=== PATIENT | male | born 1975 | race Caucasian/White ===

== ENCOUNTER 2017-11-23 20:16 | Emergency (ER) | payer OTHER ==
[2017-11-23 20:26] VITALS: RESP 17
--- NOTE | 2017-11-23 20:34 | EDPHY ---
H & P Time Seen by Provider: 11/23/17 20:30 HPI/ROS: Chief complaint: Right thumb cut History of present illness: This is a 42-year-old male who presents to the emergency department for a cut to his right thumb. He cut it on a meat cutting device. There has been pain. There has been bleeding. However no report of paresthesias or abnormal coolness in the thumb. He is still moving it well. His tetanus is up-to-date. Smoking Status: Never smoked Physical Exam: General: Alert, nontoxic Skin: Very superficial amputation of skin involving the distal nail and distal aspect of the thumb. No repairable lesions. Musculoskeletal: Moving the right thumb in the PIP and MCP joint in all smith with full strength. Vascular: Capillary refill brisk in the thumb. Neurologic: Sensation intact throughout the thumb. Constitutional: Initial Vital Signs Temperature (C) 36.8 C 11/23/17 20:19 Heart Rate 78 11/23/17 20:19 Respiratory Rate 17 11/23/17 20:19 Blood Pressure 136/88 H 11/23/17 20:19 O2 Sat (%) 96 11/23/17 20:19 O2 Delivery Mode Room Air Allergies/Adverse Reactions: No Known Allergies Allergy (Unverified 11/23/17 20:26) Home Medications: Medication Instructions Recorded Triumeq Tablet 11/23/17 MDM/Departure - [facility] ED Course/Re-evaluation: Patient seen under the supervision of my secondary supervising physician Dr. Roque Landeros. Patient presents for a cut to his right thumb. This is very superficial. Non repairable. It is cleaned and dressed. His tetanus is already up-to-date. He is asked to follow up with worker's compensation for recheck. Return precautions are given. - Depart Disposition: Home, Routine, Self-Care Clinical Impression: Abrasion Condition: Good Instructions: Acute Wounds (ED) Additional Instructions: Follow-up with a worker's compensation doctor this week for recheck Keep wound clean with soap and water and apply dressing until healed If symptoms worsen or new symptoms develop return to the emergency room for recheck Referrals: Magdalene Ledesma MD [Primary Care Provider] - As per Instructions
[2017-11-23 21:07] VITALS: BP 132/93; PULSE 77; TEMP 98.1; O2SAT 95
== END 2017-11-23 21:04 | disposition home or self-care (01) ==
DX: S60.311A Abrasion of right thumb, initial encounter (principal); W31.2XXA Contact with powered woodworking and forming machines, initial encounter

== ENCOUNTER 2018-11-28 21:51 | Emergency (ER) | payer OTHER ==
[2018-11-28] MEDS ORDERED: NS 1,000 ML IV ONE (22:22)
[2018-11-28] MEDS ORDERED: CLINDAMYCIN 600 MG/DEXTROSE 50 ML IV ONE (22:23)
--- NOTE | 2018-11-28 22:25 | EDPHY ---
H & P Stated Complaint: left middle finger red and swollen, fever Time Seen by Provider: 11/28/18 22:02 HPI/ROS: HPI The patient, who is HIV positive on treatment, presents with left middle finger swelling which he awoke with this morning. He was feeling fine yesterday, recovered from a cough and rhinorrhea which he had been dealing with for the last 1 week. This morning when he woke up he noticed that his left middle finger was slightly swollen and he thought he might have slept on it. Throughout the day he continued to have progressive redness and swelling with pain of the digit. He also felt subjective chills, general malaise, some lightheadedness. He felt hot though did not check his temperature. He did not have any nausea or vomiting. He has no prior history of skin infection before. He denies any injury to his finger, breaks in the skin. He does not have a history of gout. He works in a grocery store. REVIEW OF SYSTEMS 10 systems were reviewed and negative with the exception of the elements mentioned in the history of present illness. PMHx: HIV 1, last CD4 count 382, HIV RNA undetectable Soc Hx: Here with his , originally from [place], works in [employer], no IV drug use PHYSICAL General Appearance: Alert, no distress Eyes: Pupils equal and round no pallor or injection ENT, Mouth: Mucous membranes moist Respiratory: There are no retractions, lungs are clear to auscultation Cardiovascular: tachycardic rate Gastrointestinal: Abdomen is soft and non-tender, no masses, bowel sounds normal Neurological: A&O, moves all extremities Skin: Warm and dry, no rashes Musculoskeletal: Left middle finger from PIP to MCP is erythematous, more prominent on the volar surface, there is no lymphangitis streaking, he has full range of motion of the digit which is soft Extremities: symmetrical, full range of motion Psychiatric: Patient is oriented X 3, there is no agitation Source: Patient Exam Limitations: No limitations - Personal History Current Tetanus Diphtheria and Acellular Pertussis (TDAP): Yes - Medical/Surgical History Hx Asthma: No Hx Chronic Respiratory Disease: No Hx Diabetes: No Hx Cardiac Disease: No Hx Renal Disease: No Hx Cirrhosis: No Hx Alcoholism: No Hx HIV/AIDS: Yes Hx Splenectomy or Spleen Trauma: No Other PMH: HIV. - Social History Smoking Status: Never smoked Constitutional: Initial Vital Signs Temperature (C) 37.3 C 11/28/18 21:55 Heart Rate 118 H 11/28/18 21:55 Respiratory Rate 16 11/28/18 21:55 Blood Pressure 94/54 L 11/28/18 21:55 O2 Sat (%) 96 11/28/18 21:55 O2 Delivery Mode Room Air Allergies/Adverse Reactions: No Known Allergies Allergy (Unverified 11/23/17 20:26) Home Medications: Medication Instructions Recorded Triumeq Tablet 11/23/17 Cephalexin [Keflex (*)] 500 mg PO Q6H #28 cap 11/28/18 Sulfamethox/Tmp 800/160 mg 1 tab PO BID #14 tab 11/28/18 [Bactrim Ds] Medical Decision Making - Diagnostics Imaging Results: Imaging Impressions Finger X-Ray 11/28/18 22:24 Impression: Soft tissue swelling of the left third PIP joint; otherwise negative. Imaging: I viewed and interpreted images myself Differential Diagnosis: 43-year-old male with HIV, last viral load undetectable, on treatment, presents with left middle finger erythema, warmth, tenderness, edema. He has good range of motion of the finger. No injury to the digit. He does have some systemic symptoms of malaise and subjective fevers. Plan for IV fluids, labs, x-ray, antibiotics. Patient's labs were relatively unremarkable. X-ray did not demonstrate any fracture or concern for osteomyelitis. He received a dose of clindamycin. He felt better after this. His heart rate had normalized. I do not suspect sepsis. Plan for treatment with Bactrim and Keflex given his underlying HIV. I will give him follow-up information for the hand specialist. I have discussed strict return precautions. If he does not improved with outpatient antibiotics , he may require admission for IV antibiotics. Differential diagnosis includes finger cellulitis, finger abscess, less likely flexor tenosynovitis. - Data Points Laboratory Results: Laboratory Results 11/28/18 22:36 11/28/18 22:36 11/28/18 11/28/18 22:36 22:36 WBC 11.40 10^3/uL H 10^3/uL (3.80-9.50) RBC 4.55 10^6/uL 10^6/uL (4.40-6.38) Hgb 14.7 g/dL g/dL (13.7-17.5) Hct 41.1 % % (40.0-51.0) MCV 90.3 fL fL (81.5-99.8) MCH 32.3 pg pg (27.9-34.1) MCHC 35.8 g/dL g/dL (32.4-36.7) RDW 11.9 % % (11.5-15.2) Plt Count 210 10^3/uL 10^3/uL (150-400) MPV 9.2 fL fL (8.7-11.7) Neut % (Auto) 85.7 % H % (39.3-74.2) Lymph % (Auto) 7.0 % L % (15.0-45.0) [place] % (Auto) 5.4 % % (4.5-13.0) Eos % (Auto) 1.1 % % (0.6-7.6) Baso % (Auto) 0.4 % % (0.3-1.7) Nucleat RBC Rel Count 0.0 % % (0.0-0.2) Absolute Neuts (auto) 9.77 10^3/uL H 10^3/uL (1.70-6.50) Absolute Lymphs (auto) 0.80 10^3/uL L 10^3/uL (1.00-3.00) Absolute Monos (auto) 0.62 10^3/uL 10^3/uL (0.30-0.80) Absolute Eos (auto) 0.13 10^3/uL 10^3/uL (0.03-0.40) Absolute Basos (auto) 0.04 10^3/uL 10^3/uL (0.02-0.10) Absolute Nucleated RBC 0.00 10^3/uL 10^3/uL (0-0.01) Immature Gran % 0.4 % % (0.0-1.1) Immature Gran # 0.04 10^3/uL 10^3/uL (0.00-0.10) ESR 8 MM/HR MM/HR (0-15) Sodium 136 mEq/L mEq/L (135-145) Potassium 3.4 mEq/L L mEq/L (3.5-5.2) Chloride 104 mEq/L mEq/L (97-110) Carbon Dioxide 22 mEq/l mEq/l (22-31) Anion Gap 10 mEq/L mEq/L (6-14) BUN 16 mg/dL mg/dL (7-23) Creatinine 0.8 mg/dL mg/dL (0.7-1.3) Estimated GFR > 60 Glucose 117 mg/dL H mg/dL (70-100) Calcium 9.4 mg/dL mg/dL (8.5-10.4) C-Reactive Protein 6.0 mg/L mg/L (<10.0) Medications Given: Discontinued Medications Acetaminophen (Tylenol) 1,000 mg PO EDNOW ONE Stop: 11/28/18 23:17 Last Admin: 11/28/18 23:34 Dose: Not Given Cephalexin (Keflex 500 Mg Prepack#4) 1 btl TAKEHOME EDNOW ONE PRN Reason: Protocol Stop: 11/28/18 23:11 Last Admin: 11/28/18 23:42 Dose: 1 btl Dicyclomine HCl (Bentyl) 20 mg PO EDNOW ONE Stop: 11/28/18 23:17 Last Admin: 11/28/18 23:34 Dose: Not Given Clindamycin Phosphate/Dextrose (Cleocin 600 Mg (Premix)) 50 mls @ 100 mls/hr IV EDNOW ONE PRN Reason: Protocol Stop: 11/28/18 22:52 Last Admin: 11/28/18 22:47 Dose: 50 mls Sodium Chloride (Ns) 1,000 mls @ 0 mls/hr IV EDNOW ONE; Wide Open PRN Reason: Protocol Stop: 11/28/18 22:23 Last Admin: 11/28/18 22:47 Dose: 1,000 mls Trimethoprim/Sulfamethoxazole (Bactrim Ds Prepack#2) 1 btl TAKEHOME EDNOW ONE Stop: 11/28/18 23:11 Last Admin: 11/28/18 23:41 Dose: 1 btl Departure - Departure Disposition: Home, Routine, Self-Care Clinical Impression: Cellulitis of finger of left hand Condition: Good Instructions: Cephalexin (By mouth), Sulfamethoxazole/Trimethoprim (By mouth), Cellulitis (ED) Additional Instructions: Please return to the emergency department if the redness or pain gets worse in any way. Please follow-up with the hand specialist for recheck if you're not better in the next 1-2 days. Referrals: Magdalene Ledesma MD [Primary Care Provider] - As per Instructions Adama Sommer MD [Medical Doctor] - As per Instructions Prescriptions: Cephalexin [Keflex (*)] 500 mg PO Q6H #28 cap Sulfamethox/Tmp 800/160 mg [Bactrim Ds] 1 tab PO BID #14 tab
[2018-11-28 22:47] LABS: PLATELET COUNT 210 10^3/uL (150-400)
[2018-11-28] MEDS ORDERED: CEPHALEXIN 500MG PREPACK#4 BTL TAKEHOME ONE (23:10)
[2018-11-28] MEDS ORDERED: SULFAMET/TMP DS PREPACK#2 BTL TAKEHOME ONE (23:10)
[2018-11-28] MEDS ORDERED: DICYCLOMINE 10 MG CAP PO ONE (23:16)
[2018-11-28] MEDS ORDERED: ACETAMINOPHEN 500 MG TAB PO ONE (23:16)
[2018-11-28 23:46] VITALS: BP 122/74
== END 2018-11-28 23:46 | disposition home or self-care (01) ==
DX: L03.012 Cellulitis of left finger (principal); E86.9 Volume depletion, unspecified
CPT/HCPCS: 96365